=== PATIENT | female | born 2000 | race American Indian/Alaskan Native ===

== ENCOUNTER 2022-03-18 05:02 | Inpatient (IN) | payer BC ==
[2022-03-18] MEDS ORDERED: LACTATED RINGERS 1,000 ML ONE (05:54)
[2022-03-18] MEDS ORDERED: LACTATED RINGERS 1,000 ML IV ONE (06:00)
[2022-03-18] MEDS ORDERED: METHYLERGONOVINE MALEATE 0.2 MG/ML VIAL IM PRN (06:52)
[2022-03-18] MEDS ORDERED: CARBOPROST TROMETHAMINE 250 MCG/1 ML INJ IM PRN (06:52)
[2022-03-18] MEDS ORDERED: LIDOCAINE (2%) 20 MG/1 ML VIAL 20 ML MDV INFILTRATI NR (06:52)
[2022-03-18] MEDS ORDERED: AMPICILLIN/NS 2 GM/100 ML 2 GM/100 ML BAG IV ONE (06:52)
[2022-03-18] MEDS ORDERED: fentaNYL 100 MCG/2 ML INJ IV PRN (07:00)
[2022-03-18] MEDS ORDERED: OXYTOCIN DRIP 30 UNITS/500 ML BAG IV SCH (07:00)
[2022-03-18] MEDS ORDERED: LOPERAMIDE 2 MG CAP PO PRN (07:00)
[2022-03-18] MEDS ORDERED: ePHEDrine SULFATE 50 MG/1 ML INJ IV PRN ×2 (07:00→08:00)
--- NOTE | 2022-03-18 07:02 | History and Physical Report ---
History of Present Illness Date of examination: 03/18/22 Date of admission: 03/18/22 Chief complaint: Contractions History of present illness: 22 year old presents to L&D with contractions. Patient denies vaginal bleeding or leaking of fluid. Patient received care at [facility] and partial records are available. LMP 06/12/21. EDC 03/19/22. significant for the following: chlamydia times 2 (treated), HPV p ositive, late care, history of coronavirus infection during . labs are not available. labs ordered upon admission. Patient denies any history of herpes; she denies any prodromal symptoms. Patient does report a history of HPV/genital warts. Past History Past Medical History: other (anemia; hospitalized for liver laceration 2008) Past Surgical History: other (TAB 2018; D&C 2018) [facility] History: chlamydia (was treated for chlamydia twice during ), other (HPV positive). denies: gonorrhea, hepatitis B, hepatitis C, herpes, HIV, syphilis, trichomonas Family/Genetic History: none Social history: no significant social history, full code. denies: smoking, alcohol abuse, prescription drug abuse, IV drug use - Obstetrical History Expected Date of Delivery: 03/19/22 Actual Gestation: 39 Week(s) 6 Day(s) : 2 Para: 0 Hx # Term Pregnancies: 0 Number of Pregnancies: 0 Spontaneous Abortions: 0 Induced : 1 Number of Living Children: 0 Medications and Allergies Allergies Allergy/AdvReac Type Severity Reaction Status Date / Time No Known Allergies Allergy Unverified 03/18/22 05:17 Active Meds: Active Medications Acetaminophen (Acetaminophen 325 Mg Tab) 650 mg PO Q4H PRN PRN Reason: Pain, Mild (1-3) Carboprost Tromethamine (Carboprost Tromethamine 250 Mcg/1 Ml Inj) 250 mcg IM ONCE PRN PRN Reason: Uterine Bleeding Ephedrine Sulfate (Ephedrine Sulfate 50 Mg/1 Ml Inj) 10 mg IV Q2M PRN PRN Reason: Hypotension Fentanyl (Fentanyl 100 Mcg/2 Ml Inj) 100 mcg IV Q2H PRN PRN Reason: Pain,Severe (7-10) LABOR PAIN Lactated Ringer's (Lactated Ringers) 1,000 mls @ 999 mls/hr IV BOLUS ONE Stop: 03/18/22 07:00 Lactated Ringer's (Lactated Ringers) 1,000 mls @ 125 mls/hr IV DIRECT DENA Oxytocin/Sodium Chloride (Pitocin/Ns 30 Unit/500ml) 30 units in 500 mls @ 40 mls/hr IV TITR DENA; Protocol Ampicillin Sodium (Ampicillin/Ns 2 Gm/100 Ml) 2 gm in 100 mls @ 100 mls/hr IV ONCE ONE; Protocol Stop: 03/18/22 07:51 Ampicillin Sodium (Ampicillin/Ns 1 Gm/50 Ml) 1 gm in 50 mls @ 100 mls/hr IV Q4H DENA; Protocol Lidocaine (Lidocaine (2%) 20 Mg/1 Ml Vial 20 Ml Mdv) 20 ml INFILTRATI ONCE ONE Stop: 03/18/22 06:53 Loperamide HCl (Loperamide 2 Mg Cap) 2 mg PO ONCE PRN PRN Reason: give with Hemabate Methylergonovine Maleate (Methylergonovine Maleate 0.2 Mg/Ml Vial) 0.2 mg IM ONCE PRN PRN Reason: Uterine Bleeding Mineral Oil (Mineral Oil 30 Ml Oral Liqd) 30 ml PO QHS PRN PRN Reason: Constipation Misoprostol (Misoprostol 200 Mcg Tab) 800 mcg DE ONCE PRN PRN Reason: Uterine Bleeding Nalbuphine HCl (Nalbuphine 10 Mg/1 Ml Inj) 10 mg IV Q2H PRN PRN Reason: Pain, Moderate (4-6) Oxytocin (Oxytocin 10 Unit/1 Ml Inj) 10 unit IM ONCE PRN PRN Reason: Uterine Bleeding Terbutaline Sulfate (Terbutaline 1 Mg/1 Ml Inj) 0.25 mg SUB-Q ONCE PRN PRN Reason: Hyperstimulation/Hypertonicity Review of Systems All systems: negative (contractions) - Vital Signs Vital signs: Vital Signs Pulse Pulse Ox 104 H 100 03/18/22 05:24 03/18/22 05:24 Temp Pulse Resp BP Pulse Ox 97.8 F 114 H 18 134/83 100 03/18/22 05:35 03/18/22 06:51 03/18/22 05:35 03/18/22 06:35 03/18/22 06:51 - Physical Exam Abdomen: Positive: normal appearance, soft. Negative: distention, tenderness, guarding, rigidity Genitourinary (Female): Positive: other (genital warts noted at introitus; no ulcerative lesions seen) Vagina: Positive: normal moisture Uterus: Positive: enlarged. Negative: tender Extremities: Negative: tenderness, edema - Obstetrical Uterine Contraction Monitor Mode: External Cervical Dilatation: 5 (BBOW) Cervical Effacement Percentage: 90 station: -3 Uterine Contraction Pattern: Regular Uterine Contraction Intensity: Moderate Results Result Diagrams: 03/18/22 06:07 All other labs normal. Assessment and Plan A: at 39 weeks, 6 days gestation. Active labor. GBS unknown. Insufficient records available. Genital warts. P: Admit. Continuous EFM. IV hydration. GBS prophylaxis. Draw labs. US. Request full records from [facility]. Consulted with Dr. Mccarthy re: this patient.
[2022-03-18 07:19] LABS: Hematocrit 28.2 % (30.3-42.9); Hemoglobin 8.5 gm/dl (10.1-14.3); Mean Corpuscular HGB Conc 30 % (30-34); Mean Corpuscular Volume 63 fl (79-97); Platelet Count 212 K/mm3 (140-440); Red Cell Distribution Width 31.1 % (13.2-15.2)
--- NOTE | 2022-03-18 07:23 | Ultrasound Report ---
US OB BPP wo non-stress, US OB follow up INDICATION / CLINICAL INFORMATION: BPP COMPARISON: None available. TECHNIQUE: Using a transcutaneous probe, multiple grayscale, color Doppler, and spectral Doppler imag es of the uterus and fetus were captured and stored. FINDINGS: BREATHING MOVEMENT = 2 GROSS BODY MOVEMENT = 2 TONE = 2 QUALITATIVE AMNIOTIC FLUID VOLUME = 2 TOTAL BIOPHYSICAL SCORE = 8/8 A single cephalic fetus with heart rate of 157 bpm is demonstrated. The amniotic fluid index is 21.3 cm, within normal limits. Small amount of debris is noted within the amniotic fluid. Grade 2 posterior placenta is present. No specific abnormality of the placental interface is demonstr ated. Biparietal Diameter = 9.7 cm = 39, 3 weeks, days Head Circumference = 34.8 cm = 40, 2 weeks, days Abdominal Circumference = 34.7 cm = 38, 4 weeks, days Femur Length = 7.8 cm = 39, 6 weeks, days Average Ultrasound Age (AUA) = 39, 4 weeks, days. EDC of 03/21/2022. The clinical estimated gestational age is 39 weeks 6 days, EDC 03/19/2022. Estimated weight = 3715 g. IMPRESSION: 1. Single live fetus with average ultrasound age of 39 weeks 4 days. 2. Normal biophysical profile, 07/08. Signer Name: Sukhdev Scott II, MD Signed: 03/18/2022 7:19 AM Workstation Name: [id number]
[2022-03-18] MEDS ORDERED: MINERAL OIL 30 ML ORAL LIQD PO PRN (07:30)
[2022-03-18] MEDS ORDERED: miSOPROStol 200 MCG TAB PR PRN (07:30)
[2022-03-18] MEDS ORDERED: ACETAMINOPHEN 325 MG TAB PO PRN (07:30)
[2022-03-18] MEDS ORDERED: TERBUTALINE 1 MG/1 ML INJ SUB-Q PRN (07:30)
[2022-03-18] MEDS ORDERED: OXYTOCIN 10 UNIT/1 ML INJ IM PRN (07:30)
[2022-03-18] MEDS ORDERED: NalbUPHINE 10 MG/1 ML INJ IV PRN (07:30)
--- NOTE | 2022-03-18 07:45 | Anesthesia Consultation ---
Anesthesia Consult and Med Hx Date of service: 03/18/22 - Airway Anesthetic Teeth Evaluation: Good ROM Head & Neck: Adequate Mental/Hyoid Distance: Adequate Mallampati Class: Class II Intubation Access Assessment: Probably Good - Pulmonary Exam CTA: Yes - Cardiac Exam Cardiac Exam: RRR - Pre-Operative Health Status ASA Pre-Surgery Classification: ASA2 Proposed Anesthetic Plan: Epidural - Pulmonary Hx Asthma: No COPD: No Hx Pneumonia: No - Cardiovascular System Hx Hypertension: No - Central Nervous System Hx Seizures: No Hx Psychiatric Problems: No - Endocrine Hx Renal Disease: No Hx End Stage Renal Disease: No Hx Hypothyroidism: No Hx Hyperthyroidism: No - Hematic Hx Anemia: No Hx Sickle Cell Disease: No - Other Systems Hx Alcohol Use: Yes
--- NOTE | 2022-03-18 07:49 | Event Note ---
Date: 03/18/22 Report given to Lorie Gonzalez CNM and Dr. Mcgrath who assume care of patient at 08:00 today.
[2022-03-18] MEDS ORDERED: NALOXONE 2 MG/2 ML INJ IV PRN (08:00)
--- NOTE | 2022-03-18 08:05 | Progress Note ---
Labor Epidural - Labor Epidural Start Time: 07:54 Stop Time: 07:58 Performed by:: MAVERICK MATHIS Procedure: Patient is requesting epidural for labor pain. H&P, and labs reviewed. Procedure explained, questions answered, consent obtained. Patient in sitting position with blood pressure cuff and pulse ox on and working. Timeout performed immediately before start of procedure. Sterile Chloraprep prep/drape. 3 mL 1% lidocaine skin wheal at L[3]-L[4]. 17-gauge tuohy epidural needle advanced to [id number] with saline at [7] cm. 25-gauge spinal needle advanced until clear, free-flowing CSF. Intrathecal dexmedetomidine [5] mcg administered and needle removed. Epidural catheter advanced to [12] cm, negative aspiration for blood and csf, negative test dose 3 ml 1.5% lidocaine with epinephrine. Sterile sponge and tegaderm applied, followed by tape reinforcement. Patient tolerated procedure well.
[2022-03-18] MEDS: fentaNYL-BUPIV 2 MCG/ML-0.125% 200 MCG/100 ML BAG EPIDURAL SCH ×3 (08:28→23:05)
--- NOTE | 2022-03-18 08:48 | Progress Note ---
Assessment and Plan A: IUP@ 39.6 wks GBS pos P: Continue monitoring GBS protocol Anticipate Subjective - Subjective Date of service: 03/18/22 Principal diagnosis: IUP@ 39.6 wks Patient reports: movement normal, contractions Objective - Vital Signs Vital Signs: Vital Signs - 12hr 03/18/22 03/18/22 03/18/22 05:24 05:29 05:34 Temperature Pulse Rate 104 H 92 H 92 H Respiratory Rate Blood Pressure Blood Pressure [Right] O2 Sat by Pulse 100 100 100 Oximetry O2 Sat by Pulse Oximetry [ Bilateral] 03/18/22 03/18/22 03/18/22 05:35 05:36 05:39 Temperature 97.8 F Pulse Rate 107 H 99 H 101 H Respiratory 18 Rate Blood Pressure 133/83 Blood Pressure 133/83 [Right] O2 Sat by Pulse 99 99 Oximetry O2 Sat by Pulse Oximetry [ Bilateral] 03/18/22 03/18/22 03/18/22 05:44 05:49 05:54 Temperature Pulse Rate 111 H 112 H 110 H Respiratory Rate Blood Pressure Blood Pressure [Right] O2 Sat by Pulse 99 100 100 Oximetry O2 Sat by Pulse Oximetry [ Bilateral] 03/18/22 03/18/22 03/18/22 06:16 06:17 06:21 Temperature Pulse Rate 104 H 105 H 103 H Respiratory Rate Blood Pressure 123/73 Blood Pressure [Right] O2 Sat by Pulse 100 100 Oximetry O2 Sat by Pulse Oximetry [ Bilateral] 03/18/22 03/18/22 03/18/22 06:26 06:31 06:35 Temperature Pulse Rate 104 H 111 H 107 H Respiratory Rate Blood Pressure 134/83 Blood Pressure [Right] O2 Sat by Pulse 99 100 Oximetry O2 Sat by Pulse Oximetry [ Bilateral] 03/18/22 03/18/22 03/18/22 06:36 06:41 06:46 Temperature Pulse Rate 115 H 136 H 115 H Respiratory Rate Blood Pressure Blood Pressure [Right] O2 Sat by Pulse 100 100 100 Oximetry O2 Sat by Pulse Oximetry [ Bilateral] 03/18/22 03/18/22 03/18/22 06:51 06:56 07:01 Temperature Pulse Rate 114 H 120 H 106 H Respiratory Rate Blood Pressure Blood Pressure [Right] O2 Sat by Pulse 100 100 100 Oximetry O2 Sat by Pulse 100 Oximetry [ Bilateral] 03/18/22 03/18/22 03/18/22 07:06 07:11 07:16 Temperature Pulse Rate 114 H 109 H 118 H Respiratory Rate Blood Pressure 128/85 Blood Pressure [Right] O2 Sat by Pulse 100 100 100 Oximetry O2 Sat by Pulse Oximetry [ Bilateral] 03/18/22 03/18/22 03/18/22 07:46 07:47 07:52 Temperature Pulse Rate 118 H 117 H 130 H Respiratory Rate Blood Pressure 132/77 Blood Pressure [Right] O2 Sat by Pulse 100 99 Oximetry O2 Sat by Pulse Oximetry [ Bilateral] 03/18/22 03/18/22 03/18/22 07:57 07:58 08:01 Temperature Pulse Rate 116 H 116 H 118 H Respiratory Rate Blood Pressure 127/73 128/72 Blood Pressure [Right] O2 Sat by Pulse 99 Oximetry O2 Sat by Pulse Oximetry [ Bilateral] 03/18/22 03/18/22 03/18/22 08:02 08:03 08:05 Temperature Pulse Rate 109 H 114 H 108 H Respiratory Rate Blood Pressure 135/84 128/60 Blood Pressure [Right] O2 Sat by Pulse 100 Oximetry O2 Sat by Pulse Oximetry [ Bilateral] 03/18/22 03/18/22 03/18/22 08:07 08:09 08:11 Temperature Pulse Rate 103 H 100 H 104 H Respiratory Rate Blood Pressure 115/59 128/70 113/57 Blood Pressure [Right] O2 Sat by Pulse 100 Oximetry O2 Sat by Pulse Oximetry [ Bilateral] 03/18/22 03/18/22 03/18/22 08:12 08:13 08:15 Temperature Pulse Rate 101 H 98 H 100 H Respiratory Rate Blood Pressure 111/60 102/53 Blood Pressure [Right] O2 Sat by Pulse 99 Oximetry O2 Sat by Pulse Oximetry [ Bilateral] 03/18/22 03/18/22 03/18/22 08:17 08:22 08:27 Temperature Pulse Rate 99 H 92 H 83 Respiratory Rate Blood Pressure 100/53 Blood Pressure [Right] O2 Sat by Pulse 99 99 99 Oximetry O2 Sat by Pulse Oximetry [ Bilateral] 03/18/22 03/18/22 03/18/22 08:32 08:35 08:37 Temperature 98.1 F Pulse Rate 92 H 96 H Respiratory 16 Rate Blood Pressure Blood Pressure [Right] O2 Sat by Pulse 99 99 Oximetry O2 Sat by Pulse Oximetry [ Bilateral] 03/18/22 08:42 Temperature Pulse Rate 97 H Respiratory Rate Blood Pressure Blood Pressure [Right] O2 Sat by Pulse 99 Oximetry O2 Sat by Pulse Oximetry [ Bilateral] - Exam Breasts: normal Abdomen: Present: normal appearance, soft, normal bowel sounds Vulva: both: normal Uterus: Present: normal FHR: auscultation normal, category 1 Uterine Contraction Monitor Mode: External Cervical Dilatation: 5 (per nurse) Cervical Effacement Percentage: 90 (per nurse) station: -3 Uterine Contraction Pattern: Regular Uterine Tone Measurement Phase: Resting Uterine Contraction Intensity: Strong/Firm Extremities: normal - Labs Labs: Abnormal Labs 03/18/22 03/18/22 06:07 06:07 Hgb 8.5 L Hct 28.2 L MCV 63 L MCH 19 L RDW 31.1 H Hemoglobin A1c < 4.0 L Laboratory Results - last 24 hr 03/18/22 03/18/22 03/18/22 06:07 06:07 06:07 WBC 8.6 RBC 4.50 Hgb 8.5 L Hct 28.2 L MCV 63 L MCH 19 L MCHC 30 RDW 31.1 H Plt Count 212 Hemoglobin A1c < 4.0 L Antibody Screen Negative
[2022-03-18 11:07] LABS: Bilirubin,Urine NEG (Negative); Blood,Urine LG (Negative); Color,Urine Yellow (Yellow); Urobilinogen,Urine < 2.0 mg/dL (<2.0)
[2022-03-18 11:09] LABS: Amphetamine Screen,Urine Negative; Benzodiazepines Screen,Urine Negative; Cannabinoid Screen,Urine Negative; Cocaine Screen,Urine Negative; Methadone Screen,Urine Negative; Opiate Screen,Urine Negative
[2022-03-18] MEDS: AMPICILLIN/NS 1 GM/50 ML 1 GM/50 ML BAG IV SCH ×2 (11:48→15:30)
[2022-03-18] MEDS: LACTATED RINGERS 1,000 ML IV SCH ×2 (13:11→18:05)
[2022-03-18] MEDS ORDERED: OXYTOCIN DRIP 30,000 MILLIUNITS/500 ML BAG IV ONE (14:00)
[2022-03-18 14:34] LABS: Hepatitis C Virus Antibody Non-Reactive (NonReactive)
[2022-03-18] MEDS ORDERED: BUPIVACAINE/PF (0.25%) 2.5 MG/ML 10 ML VIAL INFILTRATI ONE (15:15)
--- NOTE | 2022-03-18 19:07 | Progress Note ---
Assessment and Plan A: IUP@ 39.6 wks Light mec Asymptomatic anemia Asynclitic position P: Continue monitoring Start Ferrous Sulfate pp Anticipate Subjective - Subjective Date of service: 03/18/22 Principal diagnosis: IUP@ 39.6 wks Patient reports: loss of fluid, movement normal, contractions Objective - Vital Signs Vital Signs: Vital Signs - 12hr 03/18/22 03/18/22 03/18/22 06:41 06:46 06:51 Temperature Pulse Rate 136 H 115 H 114 H Respiratory Rate Blood Pressure Blood Pressure [Right] O2 Sat by Pulse 100 100 100 Oximetry O2 Sat by Pulse 100 Oximetry [ Bilateral] 03/18/22 03/18/22 03/18/22 06:56 07:01 07:06 Temperature Pulse Rate 120 H 106 H 114 H Respiratory Rate Blood Pressure 128/85 Blood Pressure [Right] O2 Sat by Pulse 100 100 100 Oximetry O2 Sat by Pulse Oximetry [ Bilateral] 03/18/22 03/18/22 03/18/22 07:11 07:16 07:46 Temperature Pulse Rate 109 H 118 H 118 H Respiratory Rate Blood Pressure 132/77 Blood Pressure [Right] O2 Sat by Pulse 100 100 Oximetry O2 Sat by Pulse Oximetry [ Bilateral] 03/18/22 03/18/22 03/18/22 07:47 07:52 07:57 Temperature Pulse Rate 117 H 130 H 116 H Respiratory Rate Blood Pressure Blood Pressure [Right] O2 Sat by Pulse 100 99 99 Oximetry O2 Sat by Pulse Oximetry [ Bilateral] 03/18/22 03/18/22 03/18/22 07:58 08:01 08:02 Temperature Pulse Rate 116 H 118 H 109 H Respiratory Rate Blood Pressure 127/73 128/72 Blood Pressure [Right] O2 Sat by Pulse 100 Oximetry O2 Sat by Pulse Oximetry [ Bilateral] 03/18/22 03/18/22 03/18/22 08:03 08:05 08:07 Temperature Pulse Rate 114 H 108 H 103 H Respiratory Rate Blood Pressure 135/84 128/60 115/59 Blood Pressure [Right] O2 Sat by Pulse 100 Oximetry O2 Sat by Pulse Oximetry [ Bilateral] 03/18/22 03/18/22 03/18/22 08:09 08:11 08:12 Temperature Pulse Rate 100 H 104 H 101 H Respiratory Rate Blood Pressure 128/70 113/57 Blood Pressure [Right] O2 Sat by Pulse 99 Oximetry O2 Sat by Pulse Oximetry [ Bilateral] 03/18/22 03/18/22 03/18/22 08:13 08:15 08:17 Temperature Pulse Rate 98 H 100 H 99 H Respiratory Rate Blood Pressure 111/60 102/53 100/53 Blood Pressure [Right] O2 Sat by Pulse 99 Oximetry O2 Sat by Pulse Oximetry [ Bilateral] 03/18/22 03/18/22 03/18/22 08:22 08:27 08:32 Temperature Pulse Rate 92 H 83 92 H Respiratory Rate Blood Pressure Blood Pressure [Right] O2 Sat by Pulse 99 99 99 Oximetry O2 Sat by Pulse Oximetry [ Bilateral] 03/18/22 03/18/22 03/18/22 08:35 08:37 08:42 Temperature 98.1 F Pulse Rate 96 H 97 H Respiratory 16 Rate Blood Pressure Blood Pressure [Right] O2 Sat by Pulse 99 99 Oximetry O2 Sat by Pulse Oximetry [ Bilateral] 03/18/22 03/18/22 03/18/22 08:47 08:52 08:57 Temperature Pulse Rate 103 H 108 H 103 H Respiratory Rate Blood Pressure 117/71 Blood Pressure [Right] O2 Sat by Pulse 100 100 99 Oximetry O2 Sat by Pulse Oximetry [ Bilateral] 03/18/22 03/18/22 03/18/22 09:02 09:04 09:07 Temperature Pulse Rate 98 H 99 H 97 H Respiratory Rate Blood Pressure 117/72 Blood Pressure [Right] O2 Sat by Pulse 100 99 Oximetry O2 Sat by Pulse Oximetry [ Bilateral] 03/18/22 03/18/22 03/18/22 09:12 09:17 09:19 Temperature Pulse Rate 92 H 94 H 94 H Respiratory Rate Blood Pressure 108/67 Blood Pressure [Right] O2 Sat by Pulse 98 98 Oximetry O2 Sat by Pulse Oximetry [ Bilateral] 03/18/22 03/18/22 03/18/22 09:22 09:27 09:32 Temperature Pulse Rate 88 88 96 H Respiratory Rate Blood Pressure Blood Pressure [Right] O2 Sat by Pulse 98 98 98 Oximetry O2 Sat by Pulse Oximetry [ Bilateral] 03/18/22 03/18/22 03/18/22 09:33 09:37 09:42 Temperature Pulse Rate 91 H 92 H 100 H Respiratory Rate Blood Pressure 113/68 Blood Pressure [Right] O2 Sat by Pulse 100 100 Oximetry O2 Sat by Pulse Oximetry [ Bilateral] 03/18/22 03/18/22 03/18/22 09:47 09:52 09:57 Temperature Pulse Rate 104 H 99 H 95 H Respiratory Rate Blood Pressure Blood Pressure [Right] O2 Sat by Pulse 100 99 99 Oximetry O2 Sat by Pulse Oximetry [ Bilateral] 03/18/22 03/18/22 03/18/22 10:02 10:03 10:07 Temperature Pulse Rate 99 H 93 H 95 H Respiratory Rate Blood Pressure 109/66 Blood Pressure [Right] O2 Sat by Pulse 100 100 Oximetry O2 Sat by Pulse Oximetry [ Bilateral] 03/18/22 03/18/22 03/18/22 10:12 10:17 10:18 Temperature Pulse Rate 98 H 94 H 93 H Respiratory Rate Blood Pressure 111/66 Blood Pressure [Right] O2 Sat by Pulse 100 100 Oximetry O2 Sat by Pulse Oximetry [ Bilateral] 03/18/22 03/18/22 03/18/22 10:22 10:27 10:32 Temperature Pulse Rate 98 H 104 H 100 H Respiratory Rate Blood Pressure 110/65 Blood Pressure [Right] O2 Sat by Pulse 100 100 100 Oximetry O2 Sat by Pulse Oximetry [ Bilateral] 03/18/22 03/18/22 03/18/22 10:37 10:42 10:47 Temperature Pulse Rate 97 H 104 H 101 H Respiratory Rate Blood Pressure Blood Pressure [Right] O2 Sat by Pulse 99 100 100 Oximetry O2 Sat by Pulse Oximetry [ Bilateral] 03/18/22 03/18/22 03/18/22 10:48 10:52 10:57 Temperature Pulse Rate 101 H 99 H 96 H Respiratory Rate Blood Pressure 110/63 Blood Pressure [Right] O2 Sat by Pulse 100 100 Oximetry O2 Sat by Pulse Oximetry [ Bilateral] 03/18/22 03/18/22 03/18/22 11:02 11:03 11:07 Temperature Pulse Rate 101 H 95 H 104 H Respiratory Rate Blood Pressure 108/62 Blood Pressure [Right] O2 Sat by Pulse 100 98 Oximetry O2 Sat by Pulse Oximetry [ Bilateral] 03/18/22 03/18/22 03/18/22 11:12 11:17 11:22 Temperature Pulse Rate 94 H 91 H 97 H Respiratory Rate Blood Pressure 101/57 Blood Pressure [Right] O2 Sat by Pulse 98 98 98 Oximetry O2 Sat by Pulse Oximetry [ Bilateral] 03/18/22 03/18/22 03/18/22 11:27 11:32 11:33 Temperature Pulse Rate 96 H 101 H 111 H Respiratory Rate Blood Pressure 112/60 Blood Pressure [Right] O2 Sat by Pulse 98 98 Oximetry O2 Sat by Pulse Oximetry [ Bilateral] 03/18/22 03/18/22 03/18/22 11:37 11:42 11:47 Temperature Pulse Rate 102 H 108 H 113 H Respiratory Rate Blood Pressure Blood Pressure [Right] O2 Sat by Pulse 98 100 99 Oximetry O2 Sat by Pulse Oximetry [ Bilateral] 03/18/22 03/18/22 03/18/22 11:50 11:52 11:57 Temperature Pulse Rate 115 H 112 H 110 H Respiratory Rate Blood Pressure 114/55 Blood Pressure [Right] O2 Sat by Pulse 98 99 Oximetry O2 Sat by Pulse Oximetry [ Bilateral] 03/18/22 03/18/22 03/18/22 12:02 12:03 12:07 Temperature Pulse Rate 113 H 113 H 113 H Respiratory Rate Blood Pressure 105/56 Blood Pressure [Right] O2 Sat by Pulse 98 100 Oximetry O2 Sat by Pulse Oximetry [ Bilateral] 03/18/22 03/18/22 03/18/22 12:12 12:17 12:22 Temperature Pulse Rate 101 H 106 H 101 H Respiratory Rate Blood Pressure 109/57 Blood Pressure [Right] O2 Sat by Pulse 99 98 98 Oximetry O2 Sat by Pulse Oximetry [ Bilateral] 03/18/22 03/18/22 03/18/22 12:27 12:32 12:37 Temperature Pulse Rate 104 H 102 H 102 H Respiratory Rate Blood Pressure 101/54 Blood Pressure [Right] O2 Sat by Pulse 98 98 98 Oximetry O2 Sat by Pulse Oximetry [ Bilateral] 03/18/22 03/18/22 03/18/22 12:42 12:47 12:48 Temperature Pulse Rate 101 H 116 H 115 H Respiratory Rate Blood Pressure 100/50 Blood Pressure [Right] O2 Sat by Pulse 97 97 Oximetry O2 Sat by Pulse Oximetry [ Bilateral] 03/18/22 03/18/22 03/18/22 12:52 12:57 13:02 Temperature Pulse Rate 106 H 114 H 109 H Respiratory Rate Blood Pressure Blood Pressure [Right] O2 Sat by Pulse 99 99 99 Oximetry O2 Sat by Pulse Oximetry [ Bilateral] 03/18/22 03/18/22 03/18/22 13:03 13:07 13:12 Temperature Pulse Rate 111 H 111 H 103 H Respiratory Rate Blood Pressure 108/59 Blood Pressure [Right] O2 Sat by Pulse 100 98 Oximetry O2 Sat by Pulse Oximetry [ Bilateral] 03/18/22 03/18/22 03/18/22 13:17 13:18 13:22 Temperature Pulse Rate 109 H 111 H 107 H Respiratory Rate Blood Pressure 126/58 Blood Pressure [Right] O2 Sat by Pulse 99 98 Oximetry O2 Sat by Pulse Oximetry [ Bilateral] 03/18/22 03/18/22 03/18/22 13:27 13:32 13:37 Temperature Pulse Rate 109 H 110 H 107 H Respiratory Rate Blood Pressure 105/58 Blood Pressure [Right] O2 Sat by Pulse 98 98 99 Oximetry O2 Sat by Pulse Oximetry [ Bilateral] 03/18/22 03/18/22 03/18/22 13:42 13:47 13:52 Temperature Pulse Rate 110 H 105 H 107 H Respiratory Rate Blood Pressure 102/57 Blood Pressure [Right] O2 Sat by Pulse 99 98 97 Oximetry O2 Sat by Pulse Oximetry [ Bilateral] 03/18/22 03/18/22 03/18/22 13:55 13:57 14:02 Temperature 99.0 F Pulse Rate 105 H 111 H 110 H Respiratory Rate Blood Pressure Blood Pressure 105/58 [Right] O2 Sat by Pulse 98 99 99 Oximetry O2 Sat by Pulse Oximetry [ Bilateral] 03/18/22 03/18/22 03/18/22 14:03 14:07 14:12 Temperature Pulse Rate 109 H 114 H 117 H Respiratory Rate Blood Pressure 105/57 Blood Pressure [Right] O2 Sat by Pulse 98 99 Oximetry O2 Sat by Pulse Oximetry [ Bilateral] 03/18/22 03/18/22 03/18/22 14:17 14:22 14:27 Temperature Pulse Rate 117 H 114 H 113 H Respiratory Rate Blood Pressure 103/57 Blood Pressure [Right] O2 Sat by Pulse 98 98 99 Oximetry O2 Sat by Pulse Oximetry [ Bilateral] 03/18/22 03/18/22 03/18/22 14:28 14:32 14:37 Temperature 99.5 F Pulse Rate 118 H 108 H Respiratory Rate Blood Pressure 114/55 Blood Pressure [Right] O2 Sat by Pulse 98 98 Oximetry O2 Sat by Pulse Oximetry [ Bilateral] 03/18/22 03/18/22 03/18/22 14:42 14:47 14:49 Temperature Pulse Rate 118 H 104 H 116 H Respiratory Rate Blood Pressure 128/58 Blood Pressure [Right] O2 Sat by Pulse 99 99 Oximetry O2 Sat by Pulse Oximetry [ Bilateral] 03/18/22 03/18/22 03/18/22 14:52 14:57 15:02 Temperature Pulse Rate 120 H 104 H 101 H Respiratory Rate Blood Pressure 123/61 Blood Pressure [Right] O2 Sat by Pulse 99 98 100 Oximetry O2 Sat by Pulse Oximetry [ Bilateral] 03/18/22 03/18/22 03/18/22 15:07 15:12 15:17 Temperature Pulse Rate 99 H 108 H 104 H Respiratory Rate Blood Pressure Blood Pressure [Right] O2 Sat by Pulse 98 99 100 Oximetry O2 Sat by Pulse Oximetry [ Bilateral] 03/18/22 03/18/22 03/18/22 15:19 15:22 15:27 Temperature Pulse Rate 99 H 94 H 96 H Respiratory Rate Blood Pressure 131/84 Blood Pressure [Right] O2 Sat by Pulse 99 99 Oximetry O2 Sat by Pulse Oximetry [ Bilateral] 03/18/22 03/18/22 03/18/22 15:32 15:34 15:37 Temperature Pulse Rate 92 H 91 H 94 H Respiratory Rate Blood Pressure 126/75 Blood Pressure [Right] O2 Sat by Pulse 99 98 Oximetry O2 Sat by Pulse Oximetry [ Bilateral] 03/18/22 03/18/22 03/18/22 15:42 15:47 15:52 Temperature Pulse Rate 92 H 96 H 97 H Respiratory Rate Blood Pressure 128/78 Blood Pressure [Right] O2 Sat by Pulse 99 99 99 Oximetry O2 Sat by Pulse Oximetry [ Bilateral] 03/18/22 03/18/22 03/18/22 15:57 16:02 16:07 Temperature Pulse Rate 101 H 93 H 103 H Respiratory Rate Blood Pressure 124/73 Blood Pressure [Right] O2 Sat by Pulse 98 99 99 Oximetry O2 Sat by Pulse Oximetry [ Bilateral] 03/18/22 03/18/22 03/18/22 16:12 16:17 16:18 Temperature Pulse Rate 91 H 99 H 100 H Respiratory Rate Blood Pressure 123/58 Blood Pressure [Right] O2 Sat by Pulse 98 99 Oximetry O2 Sat by Pulse Oximetry [ Bilateral] 03/18/22 03/18/22 03/18/22 16:22 16:27 16:32 Temperature Pulse Rate 94 H 98 H 95 H Respiratory Rate Blood Pressure Blood Pressure [Right] O2 Sat by Pulse 98 100 99 Oximetry O2 Sat by Pulse Oximetry [ Bilateral] 03/18/22 03/18/22 03/18/22 16:33 16:36 16:37 Temperature 98.0 F Pulse Rate 93 H 98 H Respiratory Rate Blood Pressure 119/73 Blood Pressure [Right] O2 Sat by Pulse 100 Oximetry O2 Sat by Pulse Oximetry [ Bilateral] 03/18/22 03/18/22 03/18/22 16:38 16:42 16:47 Temperature 98.5 F Pulse Rate 95 H 93 H Respiratory Rate Blood Pressure Blood Pressure [Right] O2 Sat by Pulse 99 98 Oximetry O2 Sat by Pulse Oximetry [ Bilateral] 03/18/22 03/18/22 03/18/22 16:48 16:52 16:57 Temperature Pulse Rate 92 H 94 H 94 H Respiratory Rate Blood Pressure 119/73 Blood Pressure [Right] O2 Sat by Pulse 98 98 Oximetry O2 Sat by Pulse Oximetry [ Bilateral] 03/18/22 03/18/22 03/18/22 17:02 17:03 17:07 Temperature Pulse Rate 91 H 92 H 101 H Respiratory Rate Blood Pressure 119/74 Blood Pressure [Right] O2 Sat by Pulse 99 99 Oximetry O2 Sat by Pulse Oximetry [ Bilateral] 03/18/22 03/18/22 03/18/22 17:12 17:17 17:18 Temperature Pulse Rate 96 H 100 H 96 H Respiratory Rate Blood Pressure 122/76 Blood Pressure [Right] O2 Sat by Pulse 99 100 Oximetry O2 Sat by Pulse Oximetry [ Bilateral] 03/18/22 03/18/22 03/18/22 17:22 17:27 17:32 Temperature Pulse Rate 96 H 97 H 94 H Respiratory Rate Blood Pressure 137/71 Blood Pressure [Right] O2 Sat by Pulse 100 100 100 Oximetry O2 Sat by Pulse Oximetry [ Bilateral] 03/18/22 03/18/22 03/18/22 17:37 17:42 17:47 Temperature Pulse Rate 88 94 H 88 Respiratory Rate Blood Pressure 132/79 Blood Pressure [Right] O2 Sat by Pulse 99 97 100 Oximetry O2 Sat by Pulse Oximetry [ Bilateral] 03/18/22 03/18/22 03/18/22 17:52 17:57 18:02 Temperature Pulse Rate 92 H 90 91 H Respiratory Rate Blood Pressure Blood Pressure [Right] O2 Sat by Pulse 98 100 99 Oximetry O2 Sat by Pulse Oximetry [ Bilateral] 03/18/22 03/18/22 03/18/22 18:03 18:07 18:12 Temperature Pulse Rate 92 H 90 90 Respiratory Rate Blood Pressure 114/65 Blood Pressure [Right] O2 Sat by Pulse 99 99 Oximetry O2 Sat by Pulse Oximetry [ Bilateral] 03/18/22 03/18/22 03/18/22 18:17 18:18 18:22 Temperature Pulse Rate 93 H 95 H 106 H Respiratory Rate Blood Pressure 118/68 Blood Pressure [Right] O2 Sat by Pulse 100 100 Oximetry O2 Sat by Pulse Oximetry [ Bilateral] 03/18/22 03/18/22 03/18/22 18:27 18:32 18:33 Temperature Pulse Rate 93 H 97 H 95 H Respiratory Rate Blood Pressure 114/70 Blood Pressure [Right] O2 Sat by Pulse 100 98 Oximetry O2 Sat by Pulse Oximetry [ Bilateral] - Exam Breasts: deferred Abdomen: Present: normal appearance, soft Vulva: both: normal Uterus: Present: normal FHR: category 1 Uterine Contraction Monitor Mode: External Cervical Dilatation: 9 Cervical Effacement Percentage: 100 station: -2 Uterine Contraction Pattern: Regular Uterine Tone Measurement Phase: Resting Uterine Contraction Intensity: Strong/Firm Extremities: normal - Labs Labs: Abnormal Labs 03/18/22 03/18/22 06:07 06:07 Hgb 8.5 L Hct 28.2 L MCV 63 L MCH 19 L RDW 31.1 H Hemoglobin A1c < 4.0 L Laboratory Results - last 24 hr 03/18/22 03/18/22 03/18/22 06:07 06:07 06:07 WBC 8.6 RBC 4.50 Hgb 8.5 L Hct 28.2 L MCV 63 L MCH 19 L MCHC 30 RDW 31.1 H Plt Count 212 Hemoglobin A1c Urine Color Urine Turbidity Urine pH Ur Specific [place] Urine Protein Urine Glucose (UA) Urine Ketones Urine Blood Urine Nitrite Urine Bilirubin Urine Urobilinogen Ur Leukocyte Esterase Urine WBC (Auto) Urine RBC (Auto) U Epithel Cells (Auto) Urine Opiates Screen Urine Methadone Screen Ur Barbiturates Screen Ur Phencyclidine Scrn Ur Amphetamines Screen U Benzodiazepines Scrn Urine Cocaine Screen U Marijuana (THC) Screen Drugs of Abuse Note Syphilis IgG/IgM Ab Nonreactive SARS-CoV-2 (PCR) Hep Bs Antigen Hepatitis C Antibody Non-reactive HIV 1&2 Antibody Rapid HIV P24 Antigen Rubella IgG Antibody Immune Blood Type B POSITIVE Antibody Screen Negative 03/18/22 03/18/22 03/18/22 06:07 06:07 06:07 WBC RBC Hgb Hct MCV MCH MCHC RDW Plt Count Hemoglobin A1c < 4.0 L Urine Color Urine Turbidity Urine pH Ur Specific [place] Urine Protein Urine Glucose (UA) Urine Ketones Urine Blood Urine Nitrite Urine Bilirubin Urine Urobilinogen Ur Leukocyte Esterase Urine WBC (Auto) Urine RBC (Auto) U Epithel Cells (Auto) Urine Opiates Screen Urine Methadone Screen Ur Barbiturates Screen Ur Phencyclidine Scrn Ur Amphetamines Screen U Benzodiazepines Scrn Urine Cocaine Screen U Marijuana (THC) Screen Drugs of Abuse Note Syphilis IgG/IgM Ab SARS-CoV-2 (PCR) Hep Bs Antigen Non-reactive Hepatitis C Antibody HIV 1&2 Antibody Rapid Non react HIV P24 Antigen Non react Rubella IgG Antibody Blood Type Antibody Screen 03/18/22 03/18/22 03/18/22 09:30 09:55 09:55 WBC RBC Hgb Hct MCV MCH MCHC RDW Plt Count Hemoglobin A1c Urine Color Yellow Urine Turbidity Clear Urine pH 7.0 Ur Specific [place] 1.013 Urine Protein 30 mg/dl Urine Glucose (UA) Neg Urine Ketones Neg Urine Blood Lg Urine Nitrite Neg Urine Bilirubin Neg Urine Urobilinogen < 2.0 Ur Leukocyte Esterase Neg Urine WBC (Auto) 2.0 Urine RBC (Auto) 19.0 U Epithel Cells (Auto) 8.0 Urine Opiates Screen Negative Urine Methadone Screen Negative Ur Barbiturates Screen Negative Ur Phencyclidine Scrn Negative Ur Amphetamines Screen Negative U Benzodiazepines Scrn Negative Urine Cocaine Screen Negative U Marijuana (THC) Screen Negative Drugs of Abuse Note Disclamer Syphilis IgG/IgM Ab SARS-CoV-2 (PCR) Negative Hep Bs Antigen Hepatitis C Antibody HIV 1&2 Antibody Rapid HIV P24 Antigen Rubella IgG Antibody Blood Type Antibody Screen
[2022-03-18] MEDS ORDERED: AZITHROMYCIN/NS 500 MG/250 ML 500 MG/250 ML BAG IV SCH (21:00)
[2022-03-18] MEDS ORDERED: SODIUM CHLORIDE 0.9% 1000 ML 1,000 ML VG SCH ×2 (21:30)
[2022-03-18] MEDS ORDERED: AZITHROMYCIN 250 MG TAB PO ONE (22:00)
[2022-03-18] MEDS ORDERED: AZITHROMYCIN 250 MG/6.25 ML ORAL LIQD PO ONE (22:03)
--- NOTE | 2022-03-18 22:08 | Event Note ---
Date: 03/18/22 CC: Labor HPI: 22-year-old at 39-6/7 weeks gestation was admitted to labor and aniceto olivera in early labor. Labor was augmented. O: EFM= category 2 TOCO= q 4 min. Based on mVU, contractions not adequate. SVE= 8-9/100%/-1. IUPC and FSE placed. Clinically, I suspect occiput posterior position. LABS: HgB= 8.5 RADIOLOGY: OB US Limited= SLIUP. Vertex. Posterior placenta. EFW is 3715 g (%-ile). ALESSANDRO= 21.3 cm. BPP= 8/8 IMPRESSION: 1.) 39 weeks 2.) Labor 3.) Anemia 4.) H/O C. trachomatis x2, JACQUI (-) on 02/20/2022 5.) GBS (-) on 02/20/2022 6.) Augmentation of labor. PLAN: 1.) GBS (-) status confirmed by calling Dr. Fifi Santizo. Results were faxed to labor and delivery. As such, no antibiotics for GBS prophylaxis needed at this time. 2.) As test of cure for chlamydia was (-) on 02/20/2022, no azithromycin needed at this time. Of note, the patient is unable to swallow pills, and azithromycin liquid was tolerated by her in the past. 3.) Continue Pitocin per protocol. 4.) Currently, this patient does not fulfill the contemporary criteria for the diagnosis of dystocia/arrest disorder or second stage arrest. 5.) Clinically, I suspect occiput posterior position. Therefore, as long as there is some degree of cervical change/descent without a category 3 EFM, continue present management with patience. 6.) The patient understood the plan of care. All questions were answered.
[2022-03-19] MEDS: fentaNYL-BUPIV 2 MCG/ML-0.125% 200 MCG/100 ML BAG EPIDURAL SCH (06:05)
[2022-03-19] MEDS ORDERED: BUPIVACAINE/PF (0.25%) 2.5 MG/ML 10 ML VIAL INFILTRATI ONE (06:07)
[2022-03-19] MEDS: LACTATED RINGERS 1,000 ML IV SCH ×3 (07:28→17:30)
[2022-03-19] MEDS ORDERED: BICITRA ORAL LIQD 30ML ONE ×2 (08:35→08:37)
[2022-03-19] MEDS ORDERED: METOCLOPRAMIDE 10 MG/2 ML INJ ONE (08:36)
[2022-03-19] MEDS ORDERED: ceFAZolin/Water 2 GM/20 ML 2 GM/20 ML SYRINGE IV ONE (08:36)
[2022-03-19] MEDS ORDERED: FAMOTIDINE 20 MG/2 ML INJ IV ONE ×2 (08:36→08:42)
--- NOTE | 2022-03-19 08:41 | Event Note ---
Date: 03/19/22 I received sign out from Dr. Martinez with category II tracing intermittently and amnioinfusion order placed. Nurse on day shift states the amnioinfusion was started around 4am. pt evaluated by me and I noted pt to have overdistended abdomen without any drainage of amnioinfusion fluid. The fluid allowed to leak out of the catheter and same meconium stained. pitocin already turned off by nurse earlier for recurrent late decel. pelvic exam by me 10/100/+1 caput and head at 0 station; gross hematuria of 100cc in rawls cath. I discussed the risks, benefits and alternatives of section vs vaginal delivery for which the patient accepts. Crossmatch order [id number] PRBC done with pt hgb 8. All questions encouraged and answered. OR team, NICU and Anesthesiologist notified for primary section.
[2022-03-19] MEDS ORDERED: OXYTOCIN DRIP 30 UNITS/500 ML BAG IV SCH ×2 (09:00→18:00)
[2022-03-19] MEDS ORDERED: FAMOTIDINE 20 MG/2 ML INJ IV SCH (09:00)
[2022-03-19] MEDS ORDERED: METOCLOPRAMIDE 10 MG/2 ML INJ IV SCH (09:00)
[2022-03-19] MEDS ORDERED: BICITRA ORAL LIQD 30ML PO SCH (09:00)
[2022-03-19] MEDS ORDERED: SODIUM CHLORIDE 0.9% 500 ML 500 ML IV SCH (09:00)
[2022-03-19] MEDS ORDERED: LACTATED RINGERS 1,000 ML IV SCH (09:00)
[2022-03-19] MEDS ORDERED: WATER FOR IRRIG STERILE 1,500 ML BOTTLE IR ONE (09:03)
[2022-03-19] MEDS ORDERED: ceFAZolin/STERILE WATER 2 GM/20 ML SYRINGE IV ONE (09:03)
[2022-03-19] MEDS ORDERED: SODIUM CHLORIDE 0.9% IRR 1,500 ML BOTTLE IR ONE (09:03)
[2022-03-19] MEDS ORDERED: BUPIVACAINE/PF (0.5%) 5 MG/1 ML 30 ML VIAL INFILTRATI ONE (09:33)
[2022-03-19] MEDS ORDERED: BUPIVACAINE/PF (0.25%) 2.5 MG/ML 30 ML VIAL INFILTRATI ONE (09:33)
[2022-03-19] MEDS ORDERED: KETOROLAC 30 MG/1 ML INJ ONE (09:37)
[2022-03-19] MEDS ORDERED: OXYTOCIN 10 UNIT/1 ML INJ ONE (10:04)
[2022-03-19] MEDS ORDERED: KETAMINE/STERILE WATER 50 MG/ML SYRINGE ONE ×2 (10:24→10:34)
--- NOTE | 2022-03-19 11:34 | Electrocardiograph Report ---
[facility] Test Date: 2022-03-19 Test Time: 02:09:17 Pat Name: DAMIÁN BIRD Department: Room: 2021 Gender: F Newspaper Copy Editor: GOSIA : 2000 Requested By: KARELY DOMINGUEZ Order Number: [id number] Reading MD: Toño Stein Measurements Intervals [place] Rate: 90 P: 54 KS: 141 QRS: 36 QRSD: 73 T: 36 QT: 358 QTc: 438 Interpretive Statements Sinus rhythm Probable left atrial enlargement No previous ECG available for comparison Electronically Signed On 03-19-2022 11:34:00 EDT by Toño Stein
--- NOTE | 2022-03-19 11:51 | Procedure Note ---
OB Delivery Note - Delivery Date of Delivery: 03/19/22 Surgeon: SHIRLEY PALMER Estimated blood loss: other (per QBL by nurse) - Section Preop diagnosis: arrest of descent, nonreassuring FHR tracing Postop diagnosis: same section procedure: primary low transverse Disposition: floor Complications: none Narrative: Date: 03/19/22 Surgeon: Shirley Palmer MD Preop Dx: IUP at 40.0wks, non-reassuring FHR, failure to descend Postop Dx: same Procedure : Primary Low transverse section Anesthesia: same Intake: 1500cc Output: 375cc that cleared post delivery EBL: 1176cc by QBL per nurse report After the risks, benefits and alternatives of procedure discussed, patient signed consents and was taken to the operating room. Pt was already given epidural anesthesia. After same was adequate, patient was prepped and draped in the usual sterile fashion. Leon catheter in place and draining hematuria in the labor room and in the OR fell out with balloon inflated with hematuria and zhane blood at introitus with mid periurethral laceration. head now at +1 station and u/s with FHR in 120's. Pt offered the opportunity to push and do vacuum asst delivery for which she declined and every one present in the room heard. Risks, benefits and alternatives of operative delivery with vacuum and pt declines and requests cearean section. Pt was given prophylactic antibiotic per protocol and time out was done Pfannenstiel skin incision was made and taken sharply to the fascia and the incision extended using electrocautery. Superior edge of the fascia was grasped with yehuda clamps and the rectus muscle using blunt dissection and also using electrocautery. Lower portion of the fascia was not . Rectus muscle in the midline and Peritoneal cavity entered bluntly and extended with good visualization of the bladder. The bladder flap was created sharply using metzenbaum scissors and bladder blade placed. Lower uterine segment then entered transversely and amniotic sac entered using allys clamps. Uterine incision extended using bandage scissors. Infant head wedged deep to right pelvis dislodged upward and delivered in occiput presentation position followed by left arm and then body and baby suctioned, cord clamped, cut and then baby handed to waiting examination supervisor. Placenta then delivered completely and uterus exteriorized and no uterine rupture seen. The uterus was cleared of all clots and debri and then repaired with 2 layer closure using 0-monocryl suture in a running locked fashion and then an additional layer of imbrication suture. Excellent hemostasis noted. The uterus was returned to the abdomen Attention turned to the bladder and nurse given instruction to insert 300cc sterile milk thru the external port and no spillage noted in the abdomen, confirming bladder integrity. The anterior uterine incision and pelvis irrigated with normal saline and the gutters cleared of all clots and debri. Surgicel powder placed along uterine incision. The anterior peritoneum closed using 3-0 vicryl suture in a continuous fashion and rectus muscle reapproximated using 0-vicryl suture in a continuous fashion. Rectus fascia closed with 0-vicryl suture in a continuous fashion and subcutaneous tissue copiously irrigated with normal saline and re-approximated using 3-0 vicryl suture in a continous fashion. Excellent hemostasis remains. The skin was closed with 4-0 monocryl suture subcutaneously and steristrips placed with pressure dressing. Sponge, lap, instrument and needle counts x2 were normal. Patient tolerated the procedure well and was taken to recovery room stable. Findings: Viable female , APGARS 7/8 with umbilical vein gas pH 7.31 and BE-5; insufficient blood noted in umbilical artery and therefore no specimen could be sent for that vessel. Meconium stained fluid. weight 3340g. Normal uterus that was overdistended with meconium stained fluid and uterine atony treated with IM methergine, nromal tubes and ovaries bilaterally. - A at 1 minute: 7 at 5 minutes: 8 Gender: Female (meconium stained fluid; wt 3340g)
[2022-03-19] MEDS ORDERED: miSOPROStol 200 MCG TAB ONE (12:52)
[2022-03-19] MEDS ORDERED: MAGNESIUM SULFATE 40GM/1000ML 40 GM/1,000 ML BAG IV SCH (13:00)
[2022-03-19] MEDS ORDERED: hydrALAZINE 20 MG/1 ML INJ IV PRN (13:00)
[2022-03-19] MEDS ORDERED: miSOPROStol 200 MCG TAB PR ONE ×2 (13:06)
[2022-03-19 15:48] LABS: Hematocrit 31.5 % (30.3-42.9); Hemoglobin 9.8 gm/dl (10.1-14.3); Mean Corpuscular HGB Conc 31 % (30-34); Platelet Count 199 K/mm3 (140-440); Red Blood Count 4.98 M/mm3 (3.65-5.03)
[2022-03-19 15:52] LABS: Mean Corpuscular Volume 63 fl (79-97); Red Cell Distribution Width 31.5 % (13.2-15.2)
[2022-03-19 15:59] LABS: INR 1.01 (0.87-1.13)
[2022-03-19 16:00] LABS: Partial Thromboplastin Time 33.9 Sec. (24.2-36.6)
[2022-03-19 16:09] LABS: Alanine Aminotransferase 6 units/L (7-56); Albumin 2.7 g/dL (3.9-5); BUN/Creatinine Ratio 16; Bilirubin,Direct < 0.2 mg/dL (0-0.2); Blood Urea Nitrogen 14 mg/dL (7-17); Calcium 8.5 mg/dL (8.4-10.2); Hemolysis Index 0; Uric Acid 4.8 mg/dL (3.5-7.6)
[2022-03-19] MEDS ORDERED: AMPICILLIN/NS 2 GM/100 ML 2 GM/100 ML BAG IV SCH (17:00)
[2022-03-19] MEDS ORDERED: GENTAMICIN 290 MG in SODIUM CHLORIDE 0.9% 100 ML IV SCH (17:00)
[2022-03-19] MEDS ORDERED: MAGNESIUM HYDROXIDE (MOM) ORAL LIQD UDC PO PRN (17:34)
[2022-03-19] MEDS ORDERED: HYDROCORTISONE 25 MG RECTAL SUPP PR PRN (17:34)
[2022-03-19] MEDS ORDERED: IBUPROFEN 600 MG TAB PO PRN (17:34)
[2022-03-19] MEDS ORDERED: WITCH HAZEL/ GLYCERIN PAD TP PRN (17:34)
[2022-03-19] MEDS ORDERED: NALOXONE 0.4 MG/1 ML INJ IV PRN (17:34)
[2022-03-19] MEDS ORDERED: PROMETHAZINE 25 MG RECT SUPP PR PRN (17:34)
[2022-03-19] MEDS ORDERED: SIMETHICONE 80 MG CHEW TAB PO PRN (17:34)
[2022-03-19] MEDS ORDERED: MORPHINE 2 MG/1 ML INJ IV PRN (17:34)
[2022-03-19] MEDS ORDERED: SENNOSIDES 8.6 MG TAB PO PRN (17:34)
[2022-03-19] MEDS ORDERED: ONDANSETRON 4 MG/2 ML INJ IV PRN (17:34)
[2022-03-19] MEDS ORDERED: IBUPROFEN 800 MG TAB PO PRN (17:34)
[2022-03-19] MEDS ORDERED: LANOLIN/ZINC/DIMETHICONE (LANSINOH) 7 GM TP PRN (17:34)
--- NOTE | 2022-03-19 17:42 | Event Note ---
Date: 03/19/22 pt evaluated and uterine atony treated with cytotec 1000mcg per rectum. Urine output satisfactory. Pt still with hematuria though slight. Unclear if urethral injury with rawls falling out with inflated bulb prior to c/section and replacement thereof. Rawls to remain. hgb repeated show stability. Will give broad spectrum coverage amp/gent/clinda for which labor and delivery nurse reminded to start. BP now normal and pih labs wnl. plan of care discussed with pt and nurse. All questions encouraged and answered.
[2022-03-19] MEDS ORDERED: TOBRAMYCIN 80 MG in SODIUM CHLORIDE 0.9% 100 ML IV SCH (19:00)
[2022-03-19] MEDS ORDERED: TOBRAMYCIN IV ONE (19:00)
[2022-03-19] MEDS ORDERED: SODIUM CHLORIDE 0.9% IV ONE (19:00)
[2022-03-19 21:24] LABS: Creatinine,Urine 17.7 mg/dL (0.1-20.0)
--- NOTE | 2022-03-19 21:24 | Event Note ---
Date: 03/19/22 CC: POD #1 S/P P[facility] LTCS HPI: Underwent primary low-transverse delivery secondary to second stage arrest. Today, blood pressure was greater than 140/90 on several occasions. There was no headache, diplopia, right upper quadrant pain, or scotomata. No fevers, chills, or night sweats. O: CV= RRR. LUNG= Normal respiratory effort. ABD= soft. NT. FF below umbilicus. INC= C/D/I EXT= No C/C/E. LABS: Urine Protein to Creatinine Ratio (UPCR) = 1.92. There is significant proteinuria. Estimated 24 hour urine protein= 2,578 mg HgB= 9.8 IMPRESSION: 1.) POD #0 S/P primary low transverse delivery 2.) Preeclampsia without severe features. 3.) Periurethral laceration 4.) Anemia PLAN: 1.) Discontinue magnesium sulfate drip as there are no signs or symptoms of severe features. 2.) Discontinue postoperative prophylactic antibiotics as there are no objective findings consistent with the contemporary criteria for the diagnosis of intraamniotic infection and inflammation or endometritis. 3.) Keep Leon catheter in until 24 hours .
[2022-03-19] MEDS: oxyCODONE /ACETAMINOPHEN 5-325MG TAB PO PRN (22:24)
[2022-03-20] MEDS ORDERED: LACTATED RINGERS 1,000 ML IV SCH (03:15)
[2022-03-20] MEDS: oxyCODONE /ACETAMINOPHEN 5-325MG TAB PO PRN ×3 (03:30→20:04)
[2022-03-20] MEDS ORDERED: diphenhydrAMINE 50 MG/ML VIAL IV PRN (05:40)
[2022-03-20] MEDS ORDERED: IBUPROFEN ORAL LIQD 100 MG/5 ML ORAL.LIQD PO PRN (08:00)
[2022-03-20 08:32] LABS: Hematocrit 26.1 % (30.3-42.9); Hemoglobin 7.9 gm/dl (10.1-14.3); Mean Corpuscular HGB Conc 30 % (30-34); Platelet Count 204 K/mm3 (140-440); Red Blood Count 4.15 M/mm3 (3.65-5.03)
[2022-03-20 08:43] LABS: Mean Corpuscular Volume 63 fl (79-97)
[2022-03-20 08:44] LABS: Red Cell Distribution Width 30.9 % (13.2-15.2)
[2022-03-20] MEDS: PRENATAL VIT27-FE FUMARATE-FOLIC ACID VIT TAB PO SCH (09:49)
[2022-03-20] MEDS ORDERED: FERROUS SULFATE 325 MG TAB PO SCH (10:00)
[2022-03-20 10:16] LABS: Anisocytosis 3+; Basophils % (Manual) 0 % (0.0-1.8); Eosinophils % (Manual) 0 % (0.0-4.3); Hypochromasia 2+; Total Cells Counted 100
[2022-03-20 10:17] LABS: Large Platelets Few; Platelet Estimate Consistent w Auto
--- NOTE | 2022-03-20 10:37 | Post Anesthesia Evaluation ---
- Post Anesthesia Evaluation Patient Participated: Yes Airway Patent: Yes Stable Respiratory Function: Yes Nausea/Vomiting: No Temp > 96.8F: Yes Pain Manageable: Yes Adequeate Hydration: Yes Anesthesia Complications: No Block Receding Appropriately: Yes
--- NOTE | 2022-03-20 11:12 | Progress Note ---
Assessment and Plan A: POD #1 Asymptomatic Anemia Preeclampsia P: Follow Routine PostOp Orders Continue PO FeSo4 D/C [place] Encourage increased Ambulation Subjective - Subjective Date of service: 03/20/22 Principal diagnosis: IUP@ 39.6 wks Patient reports: appetite normal, voiding normally (rawls in place; adquate urine output), pain well controlled, ambulating normally [place]: doing well, bottle feeding Objective - Vital Signs Latest vital signs: Vital Signs Temp Pulse Resp BP BP BP Pulse Ox 03/20/22 09:48 16 03/20/22 07:24 98.8 F 111 H 18 109/70 100 03/20/22 05:16 98.7 F 109 H 18 113/74 100 03/20/22 02:14 98.6 F 103 H 18 123/95 100 03/20/22 02:10 03/20/22 01:03 106 H 135/86 03/20/22 00:33 100 H 114/73 03/20/22 00:03 108 H 123/79 03/19/22 23:44 84 18 127/80 99 03/19/22 23:37 115 H 99 03/19/22 23:36 111 H 125/77 03/19/22 23:33 105 H 121/78 80 L 03/19/22 23:26 65 76 L 03/19/22 23:22 75 L 03/19/22 23:21 94 H 75 L 03/19/22 23:16 44 L 75 L 03/19/22 23:11 48 L 74 L 03/19/22 23:06 78 72 L 03/19/22 23:05 85 03/19/22 23:03 108 H 131/84 03/19/22 23:01 72 79 L 03/19/22 22:59 94 H 78 L 03/19/22 22:54 55 L 76 L 03/19/22 22:47 116 H 85 03/19/22 22:42 51 L 85 03/19/22 22:37 89 03/19/22 22:36 58 L 85 03/19/22 22:34 129 H 127/91 03/19/22 22:32 86 03/19/22 22:27 68 86 03/19/22 22:24 18 03/19/22 22:23 75 86 03/19/22 22:22 85 03/19/22 22:17 84 03/19/22 22:12 52 L 85 03/19/22 22:07 56 L 88 03/19/22 22:03 116 H 128/92 03/19/22 22:01 72 L 03/19/22 22:00 98.2 F 18 122/84 99 03/19/22 21:58 54 L 83 L 03/19/22 21:53 33 L 76 L 03/19/22 21:50 72 L 03/19/22 21:48 69 76 L 03/19/22 21:45 31 L 77 L 03/19/22 21:39 33 L 78 L 03/19/22 21:35 97 H 81 L 03/19/22 21:34 168 H 74 L 03/19/22 21:33 112 H 124/88 03/19/22 21:30 33 L 78 L 03/19/22 21:29 27 L 75 L 03/19/22 21:23 80 L 03/19/22 21:18 192 H 78 L 03/19/22 21:13 78 L 03/19/22 21:11 110 H 82 L 03/19/22 21:07 62 81 L 03/19/22 21:06 70 81 L 03/19/22 21:03 123 H 129/87 03/19/22 21:01 124 H 100 03/19/22 20:56 103 H 100 03/19/22 20:51 106 H 100 03/19/22 20:46 104 H 100 03/19/22 20:41 101 H 100 03/19/22 20:36 109 H 99 03/19/22 20:33 110 H 128/83 03/19/22 20:31 109 H 100 03/19/22 20:26 105 H 99 03/19/22 20:21 112 H 100 03/19/22 20:16 105 H 100 03/19/22 20:11 113 H 99 03/19/22 20:06 101 H 100 03/19/22 20:03 103 H 119/83 03/19/22 20:01 102 H 99 03/19/22 19:56 106 H 122/84 99 03/19/22 19:33 106 H 114/77 03/19/22 19:31 112 H 99 03/19/22 19:30 03/19/22 19:26 104 H 99 03/19/22 19:21 102 H 99 03/19/22 19:16 101 H 99 03/19/22 19:11 109 H 99 03/19/22 19:06 111 H 99 03/19/22 19:03 105 H 117/78 03/19/22 19:01 111 H 98 03/19/22 18:56 108 H 98 03/19/22 18:51 104 H 99 03/19/22 18:46 105 H 99 03/19/22 18:41 114 H 98 03/19/22 18:36 107 H 99 03/19/22 18:33 117 H 117/88 03/19/22 18:31 109 H 99 03/19/22 18:26 105 H 99 03/19/22 18:21 106 H 98 03/19/22 18:16 107 H 99 03/19/22 18:11 110 H 99 03/19/22 18:06 109 H 99 03/19/22 18:04 106 H 113/90 03/19/22 18:01 107 H 98 03/19/22 17:56 105 H 98 03/19/22 17:51 104 H 98 03/19/22 17:46 106 H 98 03/19/22 17:41 108 H 99 03/19/22 17:36 109 H 99 03/19/22 17:35 109 H 101/55 03/19/22 17:31 106 H 98 03/19/22 17:26 107 H 98 03/19/22 17:21 105 H 99 03/19/22 17:16 109 H 99 03/19/22 17:11 104 H 99 03/19/22 17:06 104 H 99 03/19/22 17:03 114 H 107/70 03/19/22 17:01 102 H 99 03/19/22 17:00 98.1 F 03/19/22 16:56 101 H 99 03/19/22 16:51 98 H 98 03/19/22 16:46 97 H 98 03/19/22 16:41 98 H 98 03/19/22 16:36 97 H 98 03/19/22 16:33 100 H 115/78 03/19/22 16:31 92 H 99 03/19/22 16:26 94 H 98 03/19/22 16:21 94 H 98 03/19/22 16:16 91 H 98 03/19/22 16:11 92 H 98 03/19/22 16:06 95 H 98 03/19/22 16:03 102 H 122/81 03/19/22 16:01 102 H 99 03/19/22 15:56 99 H 99 03/19/22 15:51 94 H 98 03/19/22 15:46 101 H 99 03/19/22 15:41 94 H 98 03/19/22 15:36 99 H 99 03/19/22 15:33 96 H 120/84 03/19/22 15:31 97 H 98 03/19/22 15:26 100 H 98 03/19/22 15:21 96 H 98 03/19/22 15:16 103 H 99 03/19/22 15:11 94 H 98 03/19/22 15:06 94 H 99 03/19/22 15:03 92 H 119/80 03/19/22 15:01 96 H 99 03/19/22 14:56 97 H 99 03/19/22 14:51 89 100 03/19/22 14:46 87 99 03/19/22 14:41 99 H 99 03/19/22 14:36 90 99 03/19/22 14:33 89 134/92 03/19/22 14:31 88 99 03/19/22 14:26 91 H 99 03/19/22 14:21 94 H 99 03/19/22 14:16 89 99 03/19/22 14:11 90 99 03/19/22 14:06 91 H 99 03/19/22 14:03 83 136/81 03/19/22 14:01 90 98 03/19/22 13:56 87 99 03/19/22 13:51 89 99 03/19/22 13:46 88 99 03/19/22 13:41 90 98 03/19/22 13:36 87 98 03/19/22 13:15 97.7 F 84 18 138/100 99 03/19/22 13:01 97.9 F 82 17 125/93 98 03/19/22 12:45 97.8 F 82 18 133/96 98 03/19/22 12:30 97.6 F 81 18 134/96 98 03/19/22 12:15 97.5 F L 80 18 133/97 97 04/19/22 12:00 97.5 F L 80 19 138/99 97 03/19/22 11:55 97.4 F L 77 18 141/101 99 03/19/22 11:50 97.4 F L 78 18 138/103 99 Pulse Ox 03/20/22 09:48 03/20/22 07:24 03/20/22 05:16 03/20/22 02:14 03/20/22 02:10 100 03/20/22 01:03 03/20/22 00:33 03/20/22 00:03 03/19/22 23:44 03/19/22 23:37 03/19/22 23:36 03/19/22 23:33 03/19/22 23:26 03/19/22 23:22 03/19/22 23:21 03/19/22 23:16 03/19/22 23:11 03/19/22 23:06 03/19/22 23:05 03/19/22 23:03 03/19/22 23:01 03/19/22 22:59 03/19/22 22:54 03/19/22 22:47 03/19/22 22:42 03/19/22 22:37 03/19/22 22:36 03/19/22 22:34 03/19/22 22:32 03/19/22 22:27 03/19/22 22:24 03/19/22 22:23 03/19/22 22:22 03/19/22 22:17 03/19/22 22:12 03/19/22 22:07 03/19/22 22:03 03/19/22 22:01 03/19/22 22:00 03/19/22 21:58 03/19/22 21:53 03/19/22 21:50 03/19/22 21:48 03/19/22 21:45 03/19/22 21:39 03/19/22 21:35 03/19/22 21:34 03/19/22 21:33 03/19/22 21:30 03/19/22 21:29 03/19/22 21:23 03/19/22 21:18 03/19/22 21:13 03/19/22 21:11 03/19/22 21:07 03/19/22 21:06 03/19/22 21:03 03/19/22 21:01 03/19/22 20:56 03/19/22 20:51 03/19/22 20:46 03/19/22 20:41 03/19/22 20:36 03/19/22 20:33 03/19/22 20:31 03/19/22 20:26 03/19/22 20:21 03/19/22 20:16 03/19/22 20:11 03/19/22 20:06 03/19/22 20:03 03/19/22 20:01 03/19/22 19:56 03/19/22 19:33 03/19/22 19:31 03/19/22 19:30 99 03/19/22 19:26 03/19/22 19:21 03/19/22 19:16 03/19/22 19:11 03/19/22 19:06 03/19/22 19:03 03/19/22 19:01 03/19/22 18:56 03/19/22 18:51 03/19/22 18:46 03/19/22 18:41 03/19/22 18:36 03/19/22 18:33 03/19/22 18:31 03/19/22 18:26 03/19/22 18:21 03/19/22 18:16 03/19/22 18:11 03/19/22 18:06 03/19/22 18:04 03/19/22 18:01 03/19/22 17:56 03/19/22 17:51 03/19/22 17:46 03/19/22 17:41 03/19/22 17:36 03/19/22 17:35 03/19/22 17:31 03/19/22 17:26 03/19/22 17:21 03/19/22 17:16 03/19/22 17:11 03/19/22 17:06 03/19/22 17:03 03/19/22 17:01 03/19/22 17:00 03/19/22 16:56 03/19/22 16:51 03/19/22 16:46 03/19/22 16:41 03/19/22 16:36 03/19/22 16:33 03/19/22 16:31 03/19/22 16:26 03/19/22 16:21 03/19/22 16:16 03/19/22 16:11 03/19/22 16:06 03/19/22 16:03 03/19/22 16:01 03/19/22 15:56 03/19/22 15:51 03/19/22 15:46 03/19/22 15:41 03/19/22 15:36 03/19/22 15:33 03/19/22 15:31 03/19/22 15:26 03/19/22 15:21 03/19/22 15:16 03/19/22 15:11 03/19/22 15:06 03/19/22 15:03 03/19/22 15:01 03/19/22 14:56 03/19/22 14:51 03/19/22 14:46 03/19/22 14:41 03/19/22 14:36 03/19/22 14:33 03/19/22 14:31 03/19/22 14:26 03/19/22 14:21 03/19/22 14:16 03/19/22 14:11 03/19/22 14:06 03/19/22 14:03 03/19/22 14:01 03/19/22 13:56 03/19/22 13:51 03/19/22 13:46 03/19/22 13:41 03/19/22 13:36 03/19/22 13:15 03/19/22 13:01 03/19/22 12:45 03/19/22 12:30 03/19/22 12:15 03/19/22 12:00 03/19/22 11:55 03/19/22 11:50 Intake and Output 03/19/22 03/20/22 03/20/22 22:59 06:59 14:59 Intake Total 12.5 280 Output Total 500 600 Balance -487.5 -320 Intake: IV 12.5 40 Lactated Ringers 1,000 ml 12.5 @ 125 mls/hr IV DIRECT DENA Rx#:[id number] Right Hand 40 Oral 240 Output: Urine 500 600 Indwelling Catheter 500 600 Other: Total, Intake Amount 120 Total, Output Amount 500 300 - Exam Breasts: Present: normal Cardiovascular: Present: Regular rate Lungs: Present: Clear to auscultation, Normal air movement Abdomen: Present: normal appearance, soft, normal bowel sounds Uterus: Present: normal, firm, fundal height below umbilicus Extremities: Present: normal Incision: Present: dry, dressed - Labs Labs: Abnormal lab results 03/19/22 03/19/22 03/19/22 Range/Units 14:38 14:38 Unknown WBC 21.0 H (4.5-11.0) K/mm3 Hgb 9.8 L (10.1-14.3) gm/dl Hct (30.3-42.9) % MCV 63 L (79-97) fl MCH 20 L (28-32) pg RDW 31.5 H (13.2-15.2) % Seg Neuts % (Manual) (40.0-70.0) % Lymphocytes % (Manual) (13.4-35.0) % Seg Neutrophils # Man (1.8-7.7) K/mm3 Monocytes # (Manual) (0.0-0.8) K/mm3 Chloride 107.8 H (98-107) mmol/L Carbon Dioxide 19 L (22-30) mmol/L ALT 6 L (7-56) units/L Alkaline Phosphatase 199 H (35-129) units/L Total Protein 5.6 L (6.3-8.2) g/dL Albumin 2.7 L (3.9-5) g/dL Urine Total Protein 34 H (5-11.8) mg/dL 03/20/22 Range/Units 07:41 WBC 24.4 H (4.5-11.0) K/mm3 Hgb 7.9 L (10.1-14.3) gm/dl Hct 26.1 L (30.3-42.9) % MCV 63 L (79-97) fl MCH 19 L (28-32) pg RDW 30.9 H (13.2-15.2) % Seg Neuts % (Manual) 89.0 H (40.0-70.0) % Lymphocytes % (Manual) 7.0 L (13.4-35.0) % Seg Neutrophils # Man 21.7 H (1.8-7.7) K/mm3 Monocytes # (Manual) 1.0 H (0.0-0.8) K/mm3 Chloride (98-107) mmol/L Carbon Dioxide (22-30) mmol/L ALT (7-56) units/L Alkaline Phosphatase (35-129) units/L Total Protein (6.3-8.2) g/dL Albumin (3.9-5) g/dL Urine Total Protein (5-11.8) mg/dL
[2022-03-20] MEDS ORDERED: SODIUM FERRIC GLUCON/SUCRO 125 MG in SODIUM CHLORIDE 0.9% 100 ML IV ONE (14:00)
[2022-03-20] MEDS: FERROUS SULFATE 325 MG TAB PO SCH (22:01)
[2022-03-21] MEDS: oxyCODONE /ACETAMINOPHEN 5-325MG TAB PO PRN ×3 (00:35→11:45)
[2022-03-21] MEDS: FERROUS SULFATE 325 MG TAB PO SCH (11:45)
[2022-03-21] MEDS: PRENATAL VIT27-FE FUMARATE-FOLIC ACID VIT TAB PO SCH (11:45)
--- NOTE | 2022-03-21 12:00 | Progress Note ---
Assessment and Plan A: POD #2 Asymptomatic Anemia Preeclampsia Vaginal Edema P: Follow Routine PostOp Orders Continue PO FeSo4 D/C Home today per patient request RTO in One Week Subjective - Subjective Date of service: 03/21/22 Principal diagnosis: IUP@ 39.6 wks Patient reports: appetite normal, voiding normally, pain well controlled, flatus, ambulating normally [place]: doing well, bottle feeding Objective - Vital Signs Latest vital signs: Vital Signs Temp Pulse Resp BP Pulse Ox Pulse Ox 03/21/22 11:45 16 03/21/22 08:23 97.8 F 95 H 18 129/83 97 03/21/22 06:15 18 03/20/22 23:42 98.4 F 105 H 18 119/75 100 03/20/22 21:40 98 03/20/22 15:36 97.9 F 105 H 18 120/68 96 03/20/22 14:34 16 Intake and Output 03/20/22 03/21/22 03/21/22 22:59 06:59 14:59 Intake Total 480 360 Output Total 1300 650 Balance -820 -290 Intake: Oral 480 360 Output: Urine 1300 650 Indwelling Catheter 1000 Void 300 650 Other: Total, Intake Amount 120 120 Total, Output Amount 300 350 # Voids Indwelling Catheter 1 Void 1 - Exam Breasts: Present: normal Cardiovascular: Present: Regular rate Lungs: Present: Clear to auscultation, Normal air movement Abdomen: Present: normal appearance, soft, normal bowel sounds Vulva: both: laceration/episiotomy (moderate amount of vaginal edema) Uterus: Present: normal, firm, fundal height below umbilicus Extremities: Present: normal Incision: Present: normal, dry, intact - Labs Labs: Abnormal lab results 03/18/22 Range/Units 06:07 Crossmatch See Detail
--- NOTE | 2022-03-21 12:01 | Discharge Summary ---
Providers - Providers Date of Admission: 03/18/22 06:52 Date of discharge: 03/21/22 Attending physician: DARLYN PALMER Primary care physician: DARLYN PALMER Hospitalization Reason for admission: active labor Delivery: Procedure: primary low transverse Episiotomy: none Laceration: none Incision: normal, dry, intact Other procedures: none complications: none Discharge diagnosis: IUP at term delivered baby: female Condition at discharge: Good Disposition: 01 HOME / SELF CARE / HOMELESS Plan - Discharge Medications Prescriptions: Ibuprofen [Motrin] 800 mg PO Q8HR PRN 21 Days #40 tablet PRN Reason: Pain, Moderate (4-6) oxyCODONE /ACETAMINOPHEN [Percocet 5/325] 1 tab PO Q4HR PRN 21 Days #30 tab PRN Reason: Pain , Severe (7-10) - Provider Discharge Summary Activity: routine, no sex for 6 weeks, no heavy lifting 4 weeks, no strenuous exercise Diet: routine Instructions: routine Additional instructions: [] Smoking cessation referral if applicable(refer to patient education folder for contact #) [] Refer to [facility] Booklet Call your doctor immediately for: * Fever > 100.5 * Heavy vaginal bleeding ( >1 pad per hour) * Severe persistent headache * Shortness of breath * Reddened, hot, painful area to leg or breast * Drainage or odor from incision. * Keep incision clean and dry at all times and follow doctor's instructions regarding bathing/showering - Follow up plan Follow up: DARLYN PALMER MD [Primary Care Provider] - 7 Days
[2022-03-21 18:51] VITALS: BP 113/72
== END 2022-03-21 16:15 | disposition home or self-care (01) | DRG 787 ==
LOC: TRG 05:02 → APU 05:08 → LD 06:52 → TRG 08:34 → APU 03-19 09:28 → LD 03-19 13:42 → OB 03-20 01:56
PROVIDERS: ADMIT Obstetrics & Gynecology; ATTEND Obstetrics & Gynecology
PROC: 10H07YZ Insertion of Other Device into Products of Conception, Via Natural or Artificial Opening (ICD-10-PCS; 2022-03-18)
PROC: 10D00Z1 Extraction of Products of Conception, Low, Open Approach (ICD-10-PCS; principal; 2022-03-19)
DX: O76 Abnormality in fetal heart rate and rhythm complicating labor and delivery (principal); O98.32 Other infections with a predominantly sexual mode of transmission complicating childbirth; Z37.0 Single live birth; Z3A.39 39 weeks gestation of pregnancy; A63.0 Anogenital (venereal) warts; O99.824 Streptococcus B carrier state complicating childbirth; O99.02 Anemia complicating childbirth; O77.0 Labor and delivery complicated by meconium in amniotic fluid; O62.1 Secondary uterine inertia; O14.05 Mild to moderate pre-eclampsia, complicating the puerperium; Z20.822 Contact with and (suspected) exposure to COVID-19
CPT/HCPCS: 36415; 59025; 76816; 76819; 80048; 80076; 80307; 81001; 82570; 82805; 83036; 84156; 84550; 85007; 85025; 85027; 85610; 85730; 86592; 86706; 86762; 86803; 86850; 86900; 86901; 86920; 87806; 88307; 93005; 96360; G0378; J3490; J7121; J7502; J0290; J0690; J1885; J2210; J2270; J2590; J2765; J2916; J3260; J7030; J7120; U0003